=== PATIENT | male | born 1985 | race Caucasian/White ===

== ENCOUNTER 2018-06-10 00:51 | Emergency (ER) | payer SELFPAY ==
[~2018-06-10] VITALS: Ht 180.3 cm; Wt 77.1 kg
[2018-06-10 01:19] LABS: BASO # 0.1 x10^3/uL (0.0-0.2); BASO % 1 % (0-3); EOS # 0.2 x10^3/uL (0.0-0.7); EOS % 2 % (0-3); HEMOGLOBIN 16.6 g/dL (13.0-17.5); LYMPH # 2.9 x10^3/uL (1.0-4.8); LYMPH % 30 % (24-48); MEAN CORPUSCULAR HEMOGLOBIN 31 pg (25-35); MEAN CORPUSCULAR HGB CONC 35 g/dL (31-37); MEAN CORPUSCULAR VOLUME 88 fL (79-100); MONO # 0.5 x10^3/uL (0.0-1.1); MONO % 5 % (0-9); NEUT # 5.9 x10^3uL (1.8-7.7); NEUT % 62 % (31-73); PLATELET COUNT 324 x10^3/uL (140-400); RED BLOOD COUNT 5.32 x10^6/uL (4.30-5.70); RED CELL DISTRIBUTION WIDTH 13.1 % (11.5-14.5); WHITE BLOOD COUNT 9.5 x10^3/uL (4.0-11.0)
[2018-06-10 01:26] LABS: CALCIUM 9.2 mg/dL (8.5-10.1); CREATININE 1.2 mg/dL (0.7-1.3); GFR 70.6; POTASSIUM 3.5 mmol/L (3.5-5.1)
[2018-06-10] MEDS ORDERED: IV NORMAL SALINE 1000ML BAG 1,000 ML IV ONE (01:30)
[2018-06-10 01:31] LABS: ALBUMIN 4.3 g/dL (3.4-5.0); ALBUMIN/GLOBULIN RATIO 1.3 (1.0-1.7); TOTAL BILIRUBIN 0.3 mg/dL (0.2-1.0); TOTAL PROTEIN 7.6 g/dL (6.4-8.2)
[2018-06-10 01:52] LABS: AMPHETAMINE/METHAMPHETAMINE POS (NEG); BARBITURATES NEG (NEG); BENZODIAZEPINES NEG (NEG); CANNABINOIDS POS (NEG); COCAINE NEG (NEG); METHADONE NEG (NEG); OPIATES NEG (NEG); PHENCYCLIDINE NEG (NEG)
--- NOTE | 2018-06-10 02:08 | EKG ---
[facility] [address] [place] [address] Test Date: 2018-06-10 Test Time: 00:59:48 Pat Name: DAWN LEONE Department: Room: Gender: Shift Coordinator: : 1985 Requested By: MINERVA ORTEGA Order Number: [id number] Reading MD: Measurements Intervals [place] Rate: 111 P: 68 UT: 152 QRS: -22 QRSD: 98 T: 62 QT: 320 QTc: 438 Interpretive Statements SINUS TACHYCARDIA INCOMPLETE RIGHT BUNDLE BRANCH BLOCK QRS(T) CONTOUR ABNORMALITY CONSIDER ANTEROLATERAL MYOCARDIAL DAMAGE POSSIBLY ABNORMAL ECG RI6.01 No previous ECG available for comparison
[2018-06-10 02:23] VITALS: BP 145/65
--- NOTE | 2018-06-10 02:25 | RAD ---
Chest AP portable at 0106: Reason for examination: Short of breath with chest pain. Comparison is made to previous study dated 09/06/2010. The heart size is normal. Mediastinum is unremarkable. Lung matos are clear. No acute bony abnormalities are seen. Impression: No acute cardiopulmonary disease. Electronically signed by: Stephanie Cummings MD (06/10/2018 2:21 AM) [facility]
--- NOTE | 2018-06-10 02:45 | PHYS DOC ---
Past Medical History Past Medical History: Other Additional Past Medical Histor: 6 POLYPS IN LEFT LUNG Past Surgical History: Appendectomy Additional Past Surgical Histo: INGUINAL HERNIA Alcohol Use: None Drug Use: Marijuana Adult General Chief Complaint Chief Complaint: ANXIETY/PANIC ATTACK HPI HPI Patient is a 33 year old female brought in by ambulance with anxiety. He was at a alliance party anand smokes marijuana but when he got home he is very anxious. Heart was racing he is having trouble breathing so he called 911 for evaluation. History is limited by the patient's altered mental status Review of Systems Review of Systems cavazos by anxiety and altered metnla Current Medications Current Medications Current Medications Medications (Trade) Dose Ordered Sig/Evelina Start Time Stop Time Status Last Admin Dose Admin Lorazepam (Ativan) 1 mg 1X ONCE 06/10/18 01:15 06/10/18 01:29 DC 06/10/18 01:15 1 MG Sodium Chloride 1,000 ml @ 1,000 mls/hr 1X ONCE 06/10/18 01:30 06/10/18 02:29 DC 06/10/18 01:18 1,000 MLS/HR Allergies Allergies Allergies Coded Allergies Type Severity Reaction Last Updated Verified aspirin Allergy Intermediate 06/10/18 Yes Physical Exam Physical Exam Constitutional: Well developed, anxiety HENT: Normocephalic, atraumatic, bilateral external ears normal, oropharynx moist, no oral exudates, nose normal. [] Eyes: PERRLA, EOMI, conjunctiva normal, no discharge. [] Neck: Normal range of motion, no tenderness, supple, no stridor. [] Cardiovascular:tachy Lungs & Thorax: Bilateral breath sounds clear to auscultation [] Abdomen: Bowel sounds normal, soft, no tenderness, no masses, no pulsatile masses. [] Skin: Warm, dry, no erythema, no rash. [] Back: No tenderness, no CVA tenderness. [] Extremities: No tenderness, no cyanosis, no clubbing, ROM intact, no edema. [] Neurologic: Alert and oriented X 3, normal motor function, normal sensory function, no focal deficits noted. [] Psychologic: Affect normal, judgement normal, mood anxious Current Patient Data Vital Signs Vital Signs Date Time Temp Pulse Resp B/P (MAP) Pulse Ox O2 Delivery O2 Flow Rate FiO2 06/10/18 01:23 82 141/74 (96) 100 Room Air 06/10/18 00:51 97.5 22 97.5 Lab Values Laboratory Tests Test 06/10/18 01:00 06/10/18 01:30 White Blood Count 9.5 x10^3/uL (4.0-11.0) Red Blood Count 5.32 x10^6/uL (4.30-5.70) Hemoglobin 16.6 g/dL (13.0-17.5) Hematocrit 47.0 % (39.0-53.0) Mean Corpuscular Volume 88 fL (79-100) Mean Corpuscular Hemoglobin 31 pg (25-35) Mean Corpuscular Hemoglobin Concent 35 g/dL (31-37) Red Cell Distribution Width 13.1 % (11.5-14.5) Platelet Count 324 x10^3/uL (140-400) Neutrophils (%) (Auto) 62 % (31-73) Lymphocytes (%) (Auto) 30 % (24-48) Monocytes (%) (Auto) 5 % (0-9) Eosinophils (%) (Auto) 2 % (0-3) Basophils (%) (Auto) 1 % (0-3) Neutrophils # (Auto) 5.9 x10^3uL (1.8-7.7) Lymphocytes # (Auto) 2.9 x10^3/uL (1.0-4.8) Monocytes # (Auto) 0.5 x10^3/uL (0.0-1.1) Eosinophils # (Auto) 0.2 x10^3/uL (0.0-0.7) Basophils # (Auto) 0.1 x10^3/uL (0.0-0.2) Sodium Level 140 mmol/L (136-145) Potassium Level 3.5 mmol/L (3.5-5.1) Chloride Level 102 mmol/L (98-107) Carbon Dioxide Level 24 mmol/L (21-32) Anion Gap 14 (6-14) Blood Urea Nitrogen 13 mg/dL (8-26) Creatinine 1.2 mg/dL (0.7-1.3) Estimated GFR (Cockcroft-Gault) 70.6 BUN/Creatinine Ratio 11 (6-20) Glucose Level 120 mg/dL (70-99) H Calcium Level 9.2 mg/dL (8.5-10.1) Total Bilirubin 0.3 mg/dL (0.2-1.0) Aspartate Amino Transferase (AST) 15 U/L (15-37) Alanine Aminotransferase (ALT) 19 U/L (16-63) Alkaline Phosphatase 107 U/L (46-116) Total Protein 7.6 g/dL (6.4-8.2) Albumin 4.3 g/dL (3.4-5.0) Albumin/Globulin Ratio 1.3 (1.0-1.7) Ethyl Alcohol Level < 10 mg/dL (0-10) Urine Opiates Screen Neg (NEG) Urine Methadone Screen Neg (NEG) Urine Barbiturates Neg (NEG) Urine Phencyclidine Screen Neg (NEG) Urine Amphetamine/Methamphetamine Pos (NEG) Urine Benzodiazepines Screen Neg (NEG) Urine Cocaine Screen Neg (NEG) Urine Cannabinoids Screen Pos (NEG) Urine Ethyl Alcohol Neg (NEG) Laboratory Tests 06/10/18 01:00 Laboratory Tests 06/10/18 01:00 EKG EKG [] Interpretation Time: sinus tach rate 111 no ischemic changes noted. no stemi Radiology/Procedures Radiology/Procedures [] Impressions: cxr neg Course & Med Decision Making Course & Med Decision Making Pertinent Labs and Imaging studies reviewed. (See chart for details) []Anxiety tachycardia some mild altered mental status after allegedly smoking marijuana. His heart rate did peak at 160 for sure. Time but it went away with Ativan labs look good methamphetamine in his system he was counseled on some drug cessation he will Call his to pick him up. Dragon Disclaimer Dragon Disclaimer This electronic medical record was generated, in whole or in part, using a voice recognition dictation system. Departure Departure Impression: Primary Impression: Drug abuse Disposition: 01 HOME, SELF-CARE Condition: STABLE Referrals: NON,STAFF Patient Instructions: Drug Abuse, FAQs MINERVA ORTEGA MD Jun 10, 2018 02:45
== END 2018-06-10 03:03 | disposition home or self-care (01) ==
LOC: ER 00:51
DX: F12.10 Cannabis abuse, uncomplicated (principal); F41.9 Anxiety disorder, unspecified; R00.0 Tachycardia, unspecified; R41.82 Altered mental status, unspecified; R06.00 Dyspnea, unspecified; Z88.6 Allergy status to analgesic agent
CPT/HCPCS: 36415; 71045; 80053; 80307; 85025; 93005; 96361; 96374; 99284; G0480; J2060; J7030